=== PATIENT | female | born 1980 | race Caucasian/White ===

== ENCOUNTER 2022-10-25 18:37 | Day surgery (SDC) | payer BC, OTHER ==
[2022-10-25] MEDS ORDERED: Sodium Chloride 0.9% 10 ML Syringe FLUSH PRN (19:13)
[2022-10-25] MEDS ORDERED: Sodium Chloride 0.9% 1,000 ML IV STA (19:13)
[2022-10-25 19:33] LABS: BASOPHILS ABSOLUTE AUTO 0.03 K/mm3 (0.01-0.08); BASOPHILS PERCENT AUTO 0.2 % (0.1-1.2); EOSINOPHILS ABSOLUTE AUTO 0.04 K/mm3 (0.04-0.36); EOSINOPHILS PERCENT AUTO 0.2 (0.7-5.8); HEMATOCRIT 39.9 % (34.1-44.9); HEMOGLOBIN 13.2 gm/dl (11.2-15.7); IMMATURE GRAN ABSOLUTE AUTO 0.03 K/mm3 (0.00-0.10); IMMATURE GRAN PERCENT AUTO 0.2 % (<=1.0); LYMPHOCYTES PERCENT AUTO 12.8 % (19.3-51.7); MEAN CORPUSCULAR HEMOGLOBIN 28.4 pg (25.6-32.2); MEAN CORPUSCULAR HGB CONC 33.1 g/dl (32.2-35.5); MEAN CORPUSCULAR VOLUME 85.8 fl (79.4-94.8); MONOCYTES ABSOLUTE AUTO 1.14 K/mm3 (0.24-0.36); NEUTROPHILS ABSOLUTE AUTO 13.02 K/mm3 (1.56-6.13); NEUTROPHILS PERCENT AUTO 79.6 % (34.0-71.1); PLATELET COUNT,PLT 401 K/mm3 (182-369); RED BLOOD CELL COUNT 4.65 M/mm3 (3.98-5.22); WHITE BLOOD CELL COUNT,WBC 16.36 K/mm3 (3.98-10.04)
[2022-10-25] MEDS ORDERED: Iopamidol 612 MG/ML 100 ML Bottle IVPUSH ONE (19:53)
[2022-10-25] MEDS ORDERED: HYDROmorphone 0.5 MG/0.5 ML Syringe IVPUSH ONE (19:57)
[2022-10-25] MEDS ORDERED: Ondansetron 4 MG/2 ML SDV IVPUSH ONE (19:57)
[2022-10-25 20:03] LABS: A/G RATIO 0.9 (1-2); BILIRUBIN TOTAL 0.7 mg/dL (0.2-1.0); BUN/CREATININE RATIO 7.1 (14-18); CALCIUM 9.2 mg/dL (8.5-10.1); CREATININE 0.7 mg/dL (0.55-1.02); EST CRCL DRUG DOSING (CG) 86.6 mL/min; POTASSIUM,K 3.3 mEq/L (3.5-5.1); PROTEIN TOTAL,TP 8.4 g/dl (6.4-8.2)
[2022-10-25 20:17] LABS: ANION GAP 16.3 (5-15)
[2022-10-25 20:35] LABS: C-REACTIVE PROTEIN 18.9 mg/dL (<1.0)
[2022-10-25] MEDS ORDERED: Piperacillin/Tazobactam 4.5 GM in Sodium Chloride 0.9% 100 ML IV ONE (20:54)
[2022-10-25] MEDS ORDERED: Lidocaine 1% 6 ML ONE (22:27)
[2022-10-25] MEDS ORDERED: Ondansetron 4 MG/2 ML SDV ONE (22:27)
[2022-10-25] MEDS ORDERED: Propofol 200 MG/20 ML SDV ONE (22:27)
[2022-10-25] MEDS ORDERED: fentaNYL 250 MCG/5 ML SDV ONE (22:28)
[2022-10-25] MEDS ORDERED: Midazolam 1 MG/ML 2 ML SDV ONE (22:28)
[2022-10-25] MEDS ORDERED: Succinylcholine 200 MG/10 ML MDV ONE (22:34)
[2022-10-25 22:41] LABS: APPEARANCE,URINE CLEAR (Clear); BILIRUBIN,URINE NEGATIVE (Negative); COLOR,URINE YELLOW (Yellow); GLUCOSE,URINE NEGATIVE (Negative); KETONES,URINE TRACE (Negative); LEUKOCYTE ESTERASE,URINE NEGATIVE (Negative); NITRITE,URINE NEGATIVE (Negative); OCCULT BLOOD,URINE 2+ (Negative); PROTEIN,URINE TRACE (Negative); UROBILINOGEN,URINE 0.2 (0.2-1.0)
[2022-10-25 22:50] LABS: BACTERIA,URINE FEW /hpf (FEW); MUCUS,URINE FEW /hpf (FEW); SQUAMOUS EPITHELIAL CELLS,UR 0-5 /hpf (0-5); WBC,URINE 0-5 /hpf (0-5)
[2022-10-25] MEDS: Bupivacaine 0.5%/EPINEPHrine 1:200,000 50 ML MDV ONE ×2 (22:58→23:06)
[2022-10-25] MEDS: Lidocaine 1% 30 ML SDV ONE ×2 (22:59→23:06)
[2022-10-25] MEDS ORDERED: HYDROmorphone 0.5 MG/0.5 ML Syringe IVPUSH PRN (23:10)
[2022-10-25] MEDS ORDERED: fentaNYL 100 MCG/2 ML SDV IVPUSH PRN (23:10)
[2022-10-25] MEDS ORDERED: Lactated Ringers 1,000 ML ONE (23:19)
[2022-10-25] MEDS ORDERED: Neostigmine Methylsulfate 10 MG/10 ML MDV ONE (23:35)
[2022-10-26] MEDS ORDERED: Ketorolac 30 MG/ML SDV IVPUSH PRN (00:13)
[2022-10-26] MEDS ORDERED: Acetaminophen/oxyCODONE 325-5 MG Tab PO PRN (00:23)
[2022-10-26] MEDS ORDERED: Lactated Ringers 1,000 ML IV SCH (00:45)
[2022-10-26] MEDS ORDERED: Ondansetron 4 MG/2 ML SDV IVPUSH ONE (04:15)
== END 2022-10-26 09:13 | disposition home or self-care (01) ==
LOC: JD.ED 18:37 → JD.SDS 21:15 → JD.MS 10-26 01:35 → JD.SDS 10-26 09:13
PROVIDERS: ATTEND Surgery
DX: K35.30 Acute appendicitis with localized peritonitis, without perforation or gangrene (principal); F32.A Depression, unspecified; J45.909 Unspecified asthma, uncomplicated; F41.9 Anxiety disorder, unspecified; Z79.899 Other long term (current) drug therapy
CPT/HCPCS: 36415; 44970; 74177; 80053; 81001; 85025; 86140; 96361; 96365; 96375; 99285; A9270; J0330; J1170; J1885; J2250; J2405; J2543; J2704; J2710; J3010; J3490; J7030; J7120; Q9967; 00840; 99140